=== PATIENT | female | born 1995 | race Caucasian/White ===

== ENCOUNTER 2019-11-04 11:39 | Emergency (ER) | payer OTHER, SELFPAY ==
--- NOTE | 2019-11-04 11:46 | ED.SKABFB ---
HPI - Skin/Abscess/Foreign Bdy General Chief complaint: Skin/Abscess/Foreign Body Stated complaint: Rash Time Seen by Provider: 11/04/19 11:46 Source: patient and RN notes reviewed History of Present Illness HPI narrative: Patient is a 24-year-old female that presents the urgent care with complaints of hives/raised rash to bilateral hips, upper thighs, buttocks, left lower arm. Patient states that she wore new leggings recently without washing them first and noticed the rash popped up within a few hours of having the pants on. Patient states that occurred approximately 3 days ago and she has been using hydrocortisone as well as Benadryl without any relief. Denies any recent change or new use in lotions, soaps, detergents. Patient denies any other acute complaints. No acute distress noted. Patient aware of the plan of care. Related Data Home Medications Medication Instructions Recorded Confirmed Iud 11/04/19 Allergies Allergy/AdvReac Type Severity Reaction Status Date / Time No Known Allergies Allergy Verified 11/04/19 11:43 Review of Systems Review of Systems: Narrative: CONSTITUTIONAL: Denies fever, chills, or sweats. EYES: Denies visual changes, redness, or discharge. ENT: Denies rhinorrhea, congestion, sore throat, or otalgia. CARDIOVASCULAR: Denies chest pain, palpitations, or edema. RESPIRATORY: Denies cough or dyspnea. GASTROINTESTINAL: Denies abdominal pain, nausea, vomiting, or diarrhea. GENITOURINARY: Denies dysuria or hematuria. SKIN: Reports of itchy red rash to bilateral hips, buttocks, upper thighs and left lower arm. MUSCULOSKELETAL: Denies back pain, joint pain, or myalgia. NEUROLOGIC: Denies headache, numbness, or weakness. All other systems reviewed are negative, except as documented in HPI. PMFSH Comments At the time of my signature, I reviewed and agree with the nursing past medical, surgical, social, and family history. There is no relevant family history pertinent to the patient complaint. Exam Narrative: Exam Narrative: GENERAL: This is a well-nourished, well-developed patient, in no apparent distress. HEAD: normocephalic, atraumatic. EYES: PERRL. Sclera clear/white. Vision is grossly intact. EARS: External ears normal NOSE: External nose normal with no obvious nasal discharge THROAT: Mucous membranes moist NECK: Neck supple, non-tender without lymphadenopathy, masses or thyromegaly. CARDIOVASCULAR: Regular rate and rhythm without murmurs, gallops, or rubs. RESPIRATORY: Clear to auscultation. Breath sounds equal bilaterally. No wheezes, rales, or rhonchi. SKIN: Diffuse urticaria to bilateral hips and upper thighs/buttocks with surrounding papular dermatitis, also noted to the left lower arm NEURO: awake, alert, and oriented to person, place and time. There were no obvious focal neurologic abnormalities. EXTREMITIES: No clubbing, cyanosis, or edema. Course Vital Signs Vital signs: Vital Signs Temperature 99.7 F H 11/04/19 11:49 Pulse Rate 71 11/04/19 11:49 Respiratory Rate 16 11/04/19 11:49 Blood Pressure 103/72 11/04/19 11:49 Pulse Oximetry 100 11/04/19 11:49 Temperature 99.7 F H 11/04/19 11:49 Pulse Rate 71 11/04/19 11:49 Respiratory Rate 16 11/04/19 11:49 Blood Pressure 103/72 11/04/19 11:49 Pulse Oximetry 100 11/04/19 11:49 Reviewed MDM - Skin/Abscess/Foreign Bdy MDM Narrative Medical decision making narrative: Advised the patient to start the steroid taper tomorrow, considering the large dose given in the urgent care today. Advised patient to use prescription cream to the affected areas, avoiding the groin, armpits, near the eyes. Be aware that the rash will exacerbate in hot water and she should avoid taking warm baths. If you can pinpoint a known trigger, avoid that trigger and make sure everything has been newly washed. Wear loose fitting clothing as much as possible. Follow-up with PCP within 2 to 5 days or for worsening symptoms or failur
[2019-11-04 11:49] VITALS: BP 103/72; PULSE 71; RESP 16; TEMP 37.6; O2SAT 100
[2019-11-04] MEDS: predniSONE 20 MG TABLET 60 MG PO (12:29)
== END 2019-11-04 12:50 | disposition home or self-care (01) ==
PROVIDERS: Emergency Provider Nurse Practitioner Family
DX: L25.9 Unspecified contact dermatitis, unspecified cause (principal)
CPT/HCPCS: 99213; G0463; J7512

== ENCOUNTER 2019-11-06 16:50 | Emergency (ER) | payer OTHER, SELFPAY ==
--- NOTE | 2019-11-06 16:58 | ED.ALLEREA ---
HPI - Allergic Reaction General Chief complaint: Skin/Abscess/Foreign Body Stated complaint: rash History of Present Illness HPI narrative: Patient is a 24-year-old female that presents the urgent care who was here two days ago and had been prescribe steroids but her symptoms have gotten worse and medication is not working. Patient hives/raised rash to bilateral hips, upper thighs, buttocks, left lower arm have started to burn and are now on her abdomen. Patient is still using her hydrocortisone as well as Benadryl without any relief. Denies any recent change or new use in lotions, soaps, detergents. Patient denies any other acute complaints. Related Data Home Medications Medication Instructions Recorded Confirmed Iud 11/04/19 Allergies Allergy/AdvReac Type Severity Reaction Status Date / Time No Known Allergies Allergy Verified 11/04/19 11:43 Review of Systems Review of Systems: Narrative: CONSTITUTIONAL: Denies fever, chills, or sweats. EYES: Denies visual changes, redness, or discharge. ENT: Denies rhinorrhea, congestion, sore throat, or otalgia. CARDIOVASCULAR:Denies chest pain, palpitations, or edema. RESPIRATORY: Denies cough or dyspnea. GASTROINTESTINAL: Denies abdominal pain, nausea, vomiting, or diarrhea. GENITOURINARY: Denies dysuria or hematuria. SKIN reports rash or itching. MUSCULOSKELETAL:Denies back pain, joint pain, or myalgia. NEUROLOGIC: Denies headache, numbness, or weakness. PSYCHIATRIC:Denies anxiety or depression PMFSH Comments At time as signature, I have reviewed and agree with nursing past medical, social, surgical and family history. Please see nursing chart for further information. There is no relevant family history pertinent to the presenting complaint. Exam Narrative: Exam Narrative: GENERAL:Well-appearing, well-nourished, and in no acute distress. HEAD:Normocephalic, atraumatic. EYES: PERRLA and EOMI. ENT: Nares clear, no rhinorrhea or epistaxis. Mucous membranes moist. NECK: Supple. CHEST: Clear to auscultation. No respiratory distress. HEART: Regular rate and rhythm. No murmur heard. Normal peripheral pulses. ABDOMEN: Soft, nontender, nondistended, normal active bowel sounds. EXTREMITIES: Normal range of motion. No edema. SKIN: Warm, dry, raise erythema/hives rash area with mutiple scratches noted on abdomen, bilateral hips, buttocks and right arm.. NEURO: No focal deficits. Alert and oriented x3. Course Vital Signs Vital signs: Vital Signs Temperature 99.2 F 11/06/19 17:02 Pulse Rate 61 11/06/19 17:02 Respiratory Rate 16 11/06/19 17:02 Blood Pressure 122/76 11/06/19 17:02 Pulse Oximetry 100 11/06/19 17:02 Temperature 99.2 F 11/06/19 17:02 Pulse Rate 61 11/06/19 17:02 Respiratory Rate 16 11/06/19 17:02 Blood Pressure 122/76 11/06/19 17:02 Pulse Oximetry 100 11/06/19 17:02 MDM - Allergic Reaction Differential Diagnosis Differential diagnosis: Likely allergic reaction, contact dermatitis and urticaria Discharge Plan Discharge Clinical Impression: Allergic reaction, Contact dermatitis Patient Disposition: Home, Self-Care Condition: Stable Instructions: Antibiotic Form, Contact Dermatitis (ED), Urticaria (ED) Additional Instructions: Use skin creams/lotion, such as those containing calamine or pramoxine to reduce itchiness Avoid scratching when possible to prevent worsening of the condition and disruption of the skin that could lead to bacterial infection To relieve itching, place a cool washcloth or some ice over the area that itches, rather than scratching Return to the office or seek ER visit if condition is not improving or worsens with fever, swelling, difficulty breathing or swallowing. Prescriptions: New prednisone 10 mg tablet 10 mg PO DAILY Qty: 30 RF: 0 hydroxyzine HCl 10 mg tablet 10 mg PO TID PRN (Reason: itching) Qty: 14 RF: 0 betamethasone dipropionate 0.05 % ointment 1
[2019-11-06 17:02] VITALS: BP 122/76; PULSE 61; RESP 16; TEMP 37.3; O2SAT 100
== END 2019-11-06 17:38 | disposition home or self-care (01) ==
PROVIDERS: Emergency Provider Nurse Practitioner Family
DX: L23.9 Allergic contact dermatitis, unspecified cause (principal)
CPT/HCPCS: 99213; G0463